=== PATIENT | female | born 1970 | race Caucasian/White ===

== ENCOUNTER 2019-09-27 22:19 | Emergency (ER) | payer MEDICAID ==
[~2019-09-27] VITALS: Ht 149.9 cm; Wt 58.1 kg
[2019-09-27 22:40] VITALS: BP 112/73
--- NOTE | 2019-09-27 22:40 | NUR ---
TO LOBBY AMBULATORY
--- NOTE | 2019-09-27 23:38 | NUR ---
CALL FOR BED NO ANSWER
--- NOTE | 2019-09-27 23:48 | NUR ---
PT CALLED FOR BED NO ANSWER AT THIS TIME
--- NOTE | 2019-09-28 00:12 | NUR ---
PT CALLED FOR BED NO ANSWER AT THIS TIME
== END 2019-09-27 23:38 | disposition left against medical advice (07) ==
LOC: MED 22:19
DX: M79.641 Pain in right hand (principal); R22.31 Localized swelling, mass and lump, right upper limb; M79.601 Pain in right arm; M25.511 Pain in right shoulder; Z53.21 Procedure and treatment not carried out due to patient leaving prior to being seen by health care provider; W01.0XXA Fall on same level from slipping, tripping and stumbling without subsequent striking against object, initial encounter; Y92.89 Other specified places as the place of occurrence of the external cause; Y93.89 Activity, other specified; Y99.8 Other external cause status